=== PATIENT | male | born 1960 | race Caucasian/White ===

== ENCOUNTER → 2020-08-27 | Outpatient (CLI) | payer MEDICARE ==
[~2020-08-27] MED LIST: DIFLUCAN200 MG PO; OMNICEF 300 MG300 MG PO
== END ==
LOC: EXRD 13:52
DX: Z51.81 Encounter for therapeutic drug level monitoring (principal); Z79.52 Long term (current) use of systemic steroids; M85.852 Other specified disorders of bone density and structure, left thigh
CPT/HCPCS: 77080

== ENCOUNTER 2021-07-30 18:18 | Emergency (ER) | payer MEDICARE ==
[2021-07-30 18:49] LABS: HEMOGLOBIN 13.1 gm/dl (14.0-17.5); RED BLOOD COUNT 4.7 M/UL (4.20-5.50); WHITE BLOOD COUNT 10.3 K/UL (4.5-11.0)
[2021-07-30 19:25] LABS: BUN/CREATININE RATIO 19 (0-10)
== END 2021-07-30 23:25 | disposition home or self-care (01) ==
LOC: ER1 18:18
DX: J84.10 Pulmonary fibrosis, unspecified (principal); J60 Coalworker's pneumoconiosis; E11.22 Type 2 diabetes mellitus with diabetic chronic kidney disease; N18.9 Chronic kidney disease, unspecified; J44.9 Chronic obstructive pulmonary disease, unspecified; Z20.822 Contact with and (suspected) exposure to COVID-19
CPT/HCPCS: 0240U; 71045; 80053; 82550; 82553; 83880; 84484; 85025; 93005; 99285; Q9967

== ENCOUNTER 2021-08-31 12:22 | Emergency (ER) | payer BLACK LUNG, MEDICARE ==
[2021-08-31 13:54] LABS: HEMOGLOBIN 13.4 gm/dl (14.0-17.5); RED BLOOD COUNT 4.75 M/UL (4.20-5.50); WHITE BLOOD COUNT 9.8 K/UL (4.5-11.0)
[2021-08-31 14:43] LABS: BUN/CREATININE RATIO 22 (0-10)
== END 2021-08-31 15:00 | disposition home or self-care (01) ==
LOC: ER1 12:22
PROVIDERS: Family Medicine
DX: R06.00 Dyspnea, unspecified (principal); E11.65 Type 2 diabetes mellitus with hyperglycemia; R60.0 Localized edema; N28.9 Disorder of kidney and ureter, unspecified; R09.02 Hypoxemia
CPT/HCPCS: 36600; 71045; 80053; 82550; 82553; 82803; 83880; 84484; 85025; 93005; 99284

== ENCOUNTER 2021-09-22 14:55 | Emergency (ER) | payer BLACK LUNG, MEDICARE ==
[2021-09-22 15:38] LABS: HEMOGLOBIN 12.7 gm/dl (14.0-17.5); RED BLOOD COUNT 4.44 M/UL (4.20-5.50); WHITE BLOOD COUNT 10.6 K/UL (4.5-11.0)
[2021-09-22 16:35] LABS: BUN/CREATININE RATIO 26 (0-10)
== END 2021-09-23 01:00 | disposition home or self-care (01) ==
LOC: ER1 14:55
PROVIDERS: Physician Assistant
DX: K80.20 Calculus of gallbladder without cholecystitis without obstruction (principal); J44.9 Chronic obstructive pulmonary disease, unspecified; I51.9 Heart disease, unspecified; E11.9 Type 2 diabetes mellitus without complications
CPT/HCPCS: 71046; 71250; 80053; 81001; 82150; 82550; 82553; 83605; 83690; 84484; 85025; 96374; 96375; 99284; J1885; J2405; Q9967

== ENCOUNTER 2021-11-17 16:46 | Inpatient (IN) | payer BLACK LUNG, MEDICARE ==
[~2021-11-17] VITALS: Ht 182.9 cm; Wt 97.1 kg
[~2021-11-17 16:46] MED LIST changes: +PREDNISONE10 MG PO
[2021-11-17 17:52] LABS: HEMOGLOBIN 12.5 gm/dl (14.0-17.5); RED BLOOD COUNT 4.22 M/UL (4.20-5.50); WHITE BLOOD COUNT 13.1 K/UL (4.5-11.0)
[2021-11-17 18:34] LABS: BUN/CREATININE RATIO 22 (0-10)
[2021-11-18 04:07] LABS: HEMOGLOBIN 11.7 gm/dl (14.0-17.5); RED BLOOD COUNT 4.05 M/UL (4.20-5.50); WHITE BLOOD COUNT 10.6 K/UL (4.5-11.0)
[2021-11-18 05:14] LABS: BUN/CREATININE RATIO 20 (0-10)
[2021-11-18] MEDS ORDERED: SYMBICORT 16010.2 GM INH (11:07)
[2021-11-18] MEDS ORDERED: TRAMADOL HCL50 MG PO (11:07)
[2021-11-18] MEDS ORDERED: FORMOTEROL20 MCG/2 M INH (11:08)
[2021-11-18] MEDS ORDERED: SPIRIVA RESPIMAT4 GM INH (11:09)
[2021-11-18] MEDS ORDERED: TIZANIDINE HCL4 MG PO (11:09)
[2021-11-18] MEDS ORDERED: AMITRIPTYLINE100 MG PO (11:10)
[2021-11-18] MEDS ORDERED: KLONOPIN0.5 MG PO (11:11)
[2021-11-18] MEDS ORDERED: PREGABALIN100 MG PO (11:13)
[2021-11-18] MEDS ORDERED: PROAIR HFA8.5 GM INH (11:14)
[2021-11-18] MEDS ORDERED: DILTIAZEM 24HR120 M1 PO (11:15)
[2021-11-18] MEDS ORDERED: BUSPIRONE HCL10 MG PO (11:15)
[2021-11-18] MEDS ORDERED: FUROSEMIDE20 MG PO (11:16)
[2021-11-18] MEDS ORDERED: LANSOPRAZOLE30 MG PO (11:18)
[2021-11-18] MEDS ORDERED: MONTELUKAST SOD10 MG PO (11:19)
[2021-11-18] MEDS ORDERED: POTASSIUM CHLO20 ME2 PO (11:20)
[2021-11-18] MEDS ORDERED: URSODIOL250 MG PO (11:21)
[2021-11-18] MEDS ORDERED: SOTALOL80 MG PO (11:21)
[2021-11-18] MEDS ORDERED: TRESIBA SQ (11:23)
[2021-11-18] MEDS ORDERED: [UNRECOGNIZED DRUG - OTHER] SQ (11:23)
[2021-11-18] MEDS ORDERED: NOVOLOG FL100 UNIT/1 SQ (11:29)
[2021-11-19 05:37] LABS: HEMOGLOBIN 11.6 gm/dl (14.0-17.5); RED BLOOD COUNT 3.98 M/UL (4.20-5.50); WHITE BLOOD COUNT 8.8 K/UL (4.5-11.0)
[2021-11-19 05:53] LABS: BUN/CREATININE RATIO 23 (0-10)
== END 2021-11-20 15:09 | disposition home or self-care (01) | DRG 196 ==
LOC: ER1 16:46 → CDU 20:09 → MED SURG 4 20:09
PROVIDERS: Internal Medicine; ADMIT Internal Medicine
PROC: B24BZZZ Ultrasonography of Heart with Aorta (ICD-10-PCS; principal; 2021-11-18)
DX: J84.9 Interstitial pulmonary disease, unspecified (principal); I50.43 Acute on chronic combined systolic (congestive) and diastolic (congestive) heart failure; J96.21 Acute and chronic respiratory failure with hypoxia; E87.2 Acidosis; J44.1 Chronic obstructive pulmonary disease with (acute) exacerbation; I43 Cardiomyopathy in diseases classified elsewhere; Z99.81 Dependence on supplemental oxygen; Z20.822 Contact with and (suspected) exposure to COVID-19; J60 Coalworker's pneumoconiosis; I11.0 Hypertensive heart disease with heart failure; E11.9 Type 2 diabetes mellitus without complications; Z98.49 Cataract extraction status, unspecified eye; Z98.890 Other specified postprocedural states; Z82.49 Family history of ischemic heart disease and other diseases of the circulatory system; Z87.891 Personal history of nicotine dependence; Z79.899 Other long term (current) drug therapy
CPT/HCPCS: ECHO; 36415; 36600; 71045; 80048; 80053; 82550; 82553; 82803; 82962; 83605; 83735; 83880; 84484; 85025; 93005; 93306; 94640; 94664; 94760; 96374; 99285; G0378; J0456; J0696; J1650; J1940; J2543; J2920; J7030; U0002

== ENCOUNTER 2021-12-16 18:30 | Emergency (ER) | payer BLACK LUNG, MEDICARE ==
[~2021-12-16 18:30] MED LIST changes: +AMITRIPTYLINE100 MG PO; +BUSPIRONE HCL10 MG PO; +DILTIAZEM 24HR120 M1 PO; +FORMOTEROL20 MCG/2 M INH; +FUROSEMIDE20 MG PO; +KLONOPIN0.5 MG PO; +LANSOPRAZOLE30 MG PO; +MONTELUKAST SOD10 MG PO; +NOVOLOG FL100 UNIT/1 SQ; +POTASSIUM CHLO20 ME2 PO; +PREGABALIN100 MG PO; +PROAIR HFA8.5 GM INH; +SOTALOL80 MG PO; +SPIRIVA RESPIMAT4 GM INH; +SYMBICORT 16010.2 GM INH; +TIZANIDINE HCL4 MG PO; +TRAMADOL HCL50 MG PO; +TRESIBA SQ; +URSODIOL250 MG PO; +[UNRECOGNIZED DRUG - OTHER] SQ
[2021-12-16 18:57] LABS: HEMOGLOBIN 12.7 gm/dl (14.0-17.5); RED BLOOD COUNT 4.36 M/UL (4.20-5.50); WHITE BLOOD COUNT 9.6 K/UL (4.5-11.0)
[2021-12-16 19:19] LABS: BUN/CREATININE RATIO 20 (0-10)
== END 2021-12-17 01:40 | disposition home or self-care (01) ==
LOC: ER1 18:30
PROVIDERS: Student in an Organized Health Care Education/Training Program
DX: R06.02 Shortness of breath (principal); M79.89 Other specified soft tissue disorders; J44.9 Chronic obstructive pulmonary disease, unspecified; I50.9 Heart failure, unspecified; E11.22 Type 2 diabetes mellitus with diabetic chronic kidney disease; N18.9 Chronic kidney disease, unspecified
CPT/HCPCS: 71045; 80053; 82550; 82553; 83880; 84484; 85025; 93005; 96374; 99285; J1940

== ENCOUNTER 2022-01-21 16:22 | Emergency (ER) | payer BLACK LUNG, MEDICARE ==
[2022-01-21 17:25] LABS: HEMOGLOBIN 12.6 gm/dl (14.0-17.5); RED BLOOD COUNT 4.49 M/UL (4.20-5.50); WHITE BLOOD COUNT 11.1 K/UL (4.5-11.0)
[2022-01-21 18:00] LABS: BUN/CREATININE RATIO 18 (0-10)
== END 2022-01-21 22:11 | disposition home or self-care (01) ==
LOC: ER1 16:22
PROVIDERS: Nurse Practitioner
DX: J84.10 Pulmonary fibrosis, unspecified (principal); I11.0 Hypertensive heart disease with heart failure; I50.9 Heart failure, unspecified; E11.9 Type 2 diabetes mellitus without complications; Z79.899 Other long term (current) drug therapy
CPT/HCPCS: 36600; 80053; 81001; 82550; 82553; 82803; 83605; 83880; 84484; 85025; 87040; 96374; 99285; J1940; Q9967